=== PATIENT | female | born 1985 | race Two or more races ===

== ENCOUNTER 2018-12-19 19:00 | Emergency (ER) | payer OTHER ==
[~2018-12-19] VITALS: Ht 170.2 cm; Wt 114.0 kg
[~2018-12-19 19:00] MED LIST: CIPR500T4 PO; PREN1TAB17 PO
[2018-12-19 19:25] VITALS: BP 141/63; PULSE 78; RESP 20; Ht 170.2 cm; Wt 114.0 kg
[2018-12-19] MEDS ORDERED: KETOROLAC 60 MG INJ IM STA (20:31)
== END 2018-12-19 22:00 | disposition home or self-care (01) ==
LOC: FTE 19:00
DX: R10.11 Right upper quadrant pain (principal)
CPT/HCPCS: 76705; 80053; 81001; 81025; 83690; 85025; 87086; J1885; 36415; 96372